=== PATIENT | female | born 1995 | race African-American/Black ===

== ENCOUNTER 2017-08-19 19:30 | Emergency (ER) | payer SELFPAY ==
[~2017-08-19] VITALS: Ht 165.1 cm; Wt 72.0 kg
[2017-08-19 19:35] VITALS: BP 133/87; PULSE 92; RESP 16; TEMP 98.4; O2SAT 98
--- NOTE | 2017-08-19 22:38 | PD ---
HPI Chief Complaint: Eye Problems/Injury Time Seen by Provider: 22:30 Travel History International Travel<30 days: No Contact w/Intl Traveler<30days: No Traveled to known affect area: No History of Present Illness HPI 21-year-old female complains of a bump on the left lower eyelid. Patient states that it started a month ago. Patient denies any pain. Patient denies any eye discharge or drainage. patient denies any visual change. History Past Medical Histgory Tetanus Vaccination: Unknown Social History Alcohol Use: Yes (occ) Tobacco Use: No Allergies-Medications (Allergen,Severity, Reaction): Coded Allergies: No Known Allergies (Unverified , 08/19/17) Review of Systems General / Constitutional: No: Fever Eyes: No: Visual changes HENT: No: Headaches Cardiovascular: No: Chest Pain or Discomfort Respiratory: No: Shortness of Breath Gastrointestinal: No: Abdominal Pain Genitourinary: No: Dysuria Musculoskeletal: No: Pain Skin: No Rash Neurologic: No: Weakness Psychiatric: No: Depression Endocrine: No: Polydipsia Hematologic/Lymphatic: No: Easy Bruising Physical Exam Narrative GENERAL: Well-nourished, well-developed patient. SKIN: Focused skin assessment warm/dry. HEAD: Normocephalic. EYES: No scleral icterus. No injection or drainage. Patient has soft nodular lesion on the left lower eyelid. Nontender on palpation. No redness no heat. NECK: Supple, trachea midline. No JVD or lymphadenopathy. CARDIOVASCULAR: Regular rate and rhythm without murmurs, gallops, or rubs. RESPIRATORY: Breath sounds equal bilaterally. No accessory muscle use. GASTROINTESTINAL: Abdomen soft, non-tender, nondistended. MUSCULOSKELETAL: No cyanosis, or edema. BACK: Nontender without obvious deformity. No CVA tenderness. Patient has a nodular lesion Data Data Last Documented VS Vital Signs Date Time Temp Pulse Resp B/P (MAP) Pulse Ox O2 Delivery O2 Flow Rate FiO2 08/19/17 19:35 98.4 92 16 133/87 (102) 98 MDM Medical Screen Exam Complete: Yes Emergency Medical Condition: Yes Differential Diagnosis Differential diagnosis including stye, abscess, cyst. Narrative Course 21-year-old female with nodular lesion left lower eyelid. medical screening exam performed. No emergency. Patient referred to local single spindle screw machine operator. Primary Impression: Hordeolum of left eye Qualified Codes: H00.015 - Hordeolum externum left lower eyelid Additional Instructions: Refer patient to a local single spindle screw machine operator. Disposition: [facility]-ED USE ONLY Condition: Rodríguez Patel MD Aug 19, 2017 22:38
== END 2017-08-19 22:40 | disposition left against medical advice (07) ==
LOC: NEPD 19:30
DX: H00.015 Hordeolum externum left lower eyelid (principal)
CPT/HCPCS: 99281